=== PATIENT | male | born 1960 | race Caucasian/White ===

== ENCOUNTER → 2020-11-29 | Outpatient (REF) | payer OTHER ==
[2020-11-29 15:10] LABS: HEMOGLOBIN 14.5 g/dl (13.5-17.5); MEAN CORPUSCULAR HEMOGLOBIN 30.7 pg (27.0-33.0); MEAN CORPUSCULAR HGB CONC 32.2 g/dl (32.0-36.5); MEAN CORPUSCULAR VOLUME 95.1 fl (80.0-96.0); PLATELET COUNT, AUTOMATED 235 10^3/uL (150-450); RED BLOOD COUNT 4.73 10^6/uL (4.30-6.10); WHITE BLOOD COUNT 5.8 10^3/uL (4.0-10.0)
[2020-11-29 15:31] LABS: HEMOGLOBIN A1c 4.8 %
[2020-11-29 15:51] LABS: ALBUMIN 4.2 GM/DL (3.2-5.2); ALT/SGPT 29 U/L (12-78); BILIRUBIN,TOTAL 0.5 MG/DL (0.2-1.0); BLOOD UREA NITROGEN 14 MG/DL (7-18); CALCIUM LEVEL 9.1 MG/DL (8.8-10.2); CARBON DIOXIDE LEVEL 30 MEQ/L (21-32); CHLORIDE LEVEL 111 MEQ/L (98-107); CHOLESTEROL LEVEL 218 MG/DL (<200); CHOLESTEROL RISK RATIO 4.037 (<5); CREATININE FOR GFR 1.07 MG/DL (0.70-1.30); GLOMERULAR FILTRATION RATE > 60.0 (>49); GLUCOSE, FASTING 90 MG/DL (70-100); HDL CHOLESTEROL 54 MG/DL (>40); LDL CHOLESTEROL 144 MG/DL (<100); NON-HDL-C 164 MG/DL; POTASSIUM SERUM 5.1 MEQ/L (3.5-5.1); SODIUM LEVEL 144 MEQ/L (136-145); TOTAL PROTEIN 6.9 GM/DL (6.4-8.2); TRIGLYCERIDES LEVEL 99 MG/DL (<150)
== END ==
LOC: M LABWUC 14:36
PROVIDERS: ATTEND Student in an Organized Health Care Education/Training Program
DX: I10 Essential (primary) hypertension (principal)
CPT/HCPCS: 36415; 80053; 80061; 83036; 85027; G0463

== ENCOUNTER → 2023-07-09 | Outpatient (CLI) | payer OTHER | LOC: M SOG 07:51 | PROVIDERS: ATTEND Orthopaedic Surgery | DX: M25.562 Pain in left knee (principal); M25.561 Pain in right knee; Z53.9 Procedure and treatment not carried out, unspecified reason ==

== ENCOUNTER → 2023-07-09 | Outpatient (CLI) | payer OTHER | LOC: M PLAIMG 08:17 | PROVIDERS: ATTEND Student in an Organized Health Care Education/Training Program | DX: M17.0 Bilateral primary osteoarthritis of knee (principal); M25.461 Effusion, right knee ==

== ENCOUNTER → 2024-04-26 | Outpatient (CLI) | payer OTHER | LOC: M SOG 07:51 | PROVIDERS: ATTEND Orthopaedic Surgery | DX: M17.0 Bilateral primary osteoarthritis of knee (principal) ==

== ENCOUNTER → 2024-12-01 | Outpatient (REF) | payer OTHER ==
[2024-12-01 19:27] LABS: BASO # 0.1 10^3/uL (0.0-0.2); BASO % 0.7 % (0.0-1.0); EOS # 0.1 10^3/uL (0.0-0.5); EOS % 1.6 % (0.0-3.0); HEMATOCRIT 48.2 % (42.0-52.0); HEMOGLOBIN 16.1 g/dl (13.5-17.5); LYMPH # 1.6 10^3/uL (1.5-5.0); MEAN CORPUSCULAR HEMOGLOBIN 31.9 pg (27.0-33.0); MEAN CORPUSCULAR HGB CONC 33.4 g/dl (32.0-36.5); MEAN CORPUSCULAR VOLUME 95.4 fl (80.0-96.0); MONO # 0.4 10^3/uL (0.0-0.8); MONO % 5.6 % (2.0-8.0); NEUTROPHILS # 4.8 10^3/uL (1.5-8.5); NEUTROPHILS % 68.8 % (36.0-66.0); PLATELET COUNT, AUTOMATED 240 10^3/uL (150-450); RED BLOOD COUNT 5.05 10^6/uL (4.30-6.10); WHITE BLOOD COUNT 6.9 10^3/uL (4.0-10.0)
[2024-12-01 19:53] LABS: ALBUMIN 4.3 G/DL (3.2-5.2); ALKALINE PHOSPHATASE 107 U/L (40-129); ALT/SGPT 24 U/L (7.0-40); AST/SGOT 18 U/L (<34); BILIRUBIN,TOTAL 0.8 MG/DL (0.3-1.2); BLOOD UREA NITROGEN 14 MG/DL (9-23); CALCIUM LEVEL 9.8 MG/DL (8.3-10.6); CARBON DIOXIDE LEVEL 29 MMOL/L (20-31); CHLORIDE LEVEL 105 MMOL/L (98-107); CHOLESTEROL LEVEL 182 MG/DL (<200); CHOLESTEROL RISK RATIO 3.45 (<5); CREATININE FOR GFR 0.95 MG/DL (0.70-1.30); GLOMERULAR FILTRATION RATE > 60.0 (>49); GLUCOSE, FASTING 88 MG/DL (74-106); HDL CHOLESTEROL 52.7 MG/DL (>40); LDL CHOLESTEROL 105.3 MG/DL (<100); NON-HDL-C 129.3 MG/DL; POTASSIUM SERUM 4.4 MMOL/L (3.5-5.1); SODIUM LEVEL 146 MMOL/L (136-145); TOTAL PROTEIN 7.1 G/DL (5.7-8.2); TRIGLYCERIDES LEVEL 120 MG/DL (<150)
[2024-12-01 20:14] LABS: HEMOGLOBIN A1c 4.6 % (4.0-6.0)
== END ==
LOC: M SFHCLERA 13:53
DX: E78.5 Hyperlipidemia, unspecified (principal); Z76.89 Persons encountering health services in other specified circumstances; Z23 Encounter for immunization

== ENCOUNTER → 2025-02-22 | Outpatient (CLI) | payer OTHER ==
[2025-02-22 18:23] LABS: CREATININE FOR GFR 0.96 MG/DL (0.70-1.30); GLOMERULAR FILTRATION RATE 87.7 (>49); POTASSIUM SERUM 4.1 MMOL/L (3.5-5.1)
== END ==
LOC: M WUC 13:05
DX: I10 Essential (primary) hypertension (principal)

== ENCOUNTER 2025-03-19 11:10 | Emergency (ER) | payer MEDICARE, OTHER ==
[~2025-03-19] VITALS: Ht 185.4 cm; Wt 130.0 kg
[2025-03-19] MEDS ORDERED: ATOR1TAB19 PO (11:24)
[2025-03-19] MEDS ORDERED: HYDR-3490 PO (11:24)
[2025-03-19] MEDS: TETRACAINE 0.5% OPHTH SOLN 4ML OD ONE (13:30)
[2025-03-19] MEDS: FLUORESCEIN OPHTH 1MG STRIP OD ONE (13:30)
[2025-03-19] MEDS: BOOSTRIX VACCINE (TETANUS/DIPHTH/ACEL. PERTUSSIS) 0.5ML SYR IM ONE (13:38)
[2025-03-19] MEDS ORDERED: POLY2.5S OD (14:18)
[2025-03-19 14:27] VITALS: BP 143/85; TEMP 98.3; O2SAT 99
== END 2025-03-19 14:28 | disposition home or self-care (01) ==
LOC: M ED 11:10
DX: H11.31 Conjunctival hemorrhage, right eye (principal); H57.11 Ocular pain, right eye; I10 Essential (primary) hypertension; E78.5 Hyperlipidemia, unspecified; F10.10 Alcohol abuse, uncomplicated; Z79.02 Long term (current) use of antithrombotics/antiplatelets; Z79.899 Other long term (current) drug therapy; Z23 Encounter for immunization